=== PATIENT | male | born 1935 | race Caucasian/White ===

== ENCOUNTER → 2019-01-11 11:44 | Outpatient (CLI) | payer MEDICARE ==
--- NOTE | 2019-01-21 13:55 | EC ---
PATIENT:ALYSSA DENNIS DATE OF SERVICE: 01/11/19 SEX: M MEDICAL RECORD: [id number] DATE OF : 35 LOCATION:[facility] AGE OF PATIENT: 83 ADMISSION DATE: 01/11/19 REFERRING PHYSICIAN: INTERPRETING PHYSICIAN: ALYCE HENDRIX MD ECHOCARDIOGRAM REPORT ECHO CHARGES 4 ECHO COMPLETE Date: 01/11/19 CLINICAL DIAGNOSIS: HTN/AI ECHOCARDIOGRAPHIC MEASUREMENTS (adult normal given) AC root (d.<3.7cm) 3.7 cm LV Septum d (<1.2 cm> 1.5 cm Valve Excursion 2.2 cm LV Septum (systole) 1.8 cm Left Atria (s.<4.0cm> 4.7 cm LVPW d(<1.2cm) 0.9 cm RV (d.<2.3cm) 2.4 cm LVPW (sytole) 1.5 cm LV diastole(<5.6CM) 5.5 cm MV E-F(>70mm/sec) cm LV systole 3.2 cm LVOT Diameter 1.8 cm MV exc.(>10mm) cm Est.ejection fraction (50-75%) % DOPPLER: LVIT cm/sec A 66.0 cm/sec E 84.0 cm/sec LA cm/sec RVSP 43.0 mmHg LVOT 115 cm/sec AOP1/2T m/s Asc. Ao 147 cm/sec RVOT 54.0 cm/sec RA cm/sec PA 76.0 cm/sec AV Gradient Peak 8.7 mmHg AV Mean 4.2 mmHg AV Area 2.1 cm MV Gradient Peak 5.2 mmHg MV Mean 1.0 mmHg MV Area cm COMMENTS: OP - HC Scissors Sharpener: Josie POLANCOOE Clinical Nursing Assistant: 3 Dr. Gorman TAPE# PACS Pericardial Effusion N DATE OF SERVICE: 01/11/2019 Adequate 2D, Color Flow, Spectral Doppler, and M-Mode LVH is present. LV internal dimensions are normal. Wall motion is normal. Ejection fraction of greater than 55%. Aortic valve has sclerosis without stenosis by Doppler interrogation. Lgbb-ip-defyopuc AI present by color flow imaging. Left atrium dilated at 4.7 cm. Mitral valve shows no prolapse. Mild MR. Right-sided chambers are grossly normal. Mild TR. ECHOCARDIOGRAM REPORT [id number] ALYSSA DENNIS TRANSINT:[id number] Voice Confirmation ID: [id number] DOCUMENT ID: [id number] ALYCE HENDRIX MD at 1355 CC: [id number] DICTATION DATE: 01/12/19 1140 SOLVENT MIXER: 01/12/19 2302 DEP CLI 01/11/19 [facility] [address] [id number]
== END | disposition home or self-care (01) ==
LOC: D.HCCARDIO 01-09 09:00
PROVIDERS: ATTEND Internal Medicine Interventional Cardiology
DX: I35.9 Nonrheumatic aortic valve disorder, unspecified (principal); I10 Essential (primary) hypertension

== ENCOUNTER → 2020-01-22 08:30 | Outpatient (CLI) | payer MEDICARE ==
--- NOTE | 2020-01-24 11:30 | EC ---
PATIENT:ALYSSA DENNIS DATE OF SERVICE: 01/22/20 SEX: M MEDICAL RECORD: [id number] DATE OF : 35 LOCATION:[facility] AGE OF PATIENT: 84 ADMISSION DATE: 01/22/20 REFERRING PHYSICIAN: INTERPRETING PHYSICIAN: ALYCE HENDRIX MD ECHOCARDIOGRAM REPORT ECHO CHARGES 4 ECHO COMPLETE Date: 01/22/20 CLINICAL DIAGNOSIS: AORITC SCLEROSIS AND AORIC INSUFF ECHOCARDIOGRAPHIC MEASUREMENTS (adult normal given) AC root (d.<3.7cm) 4.0 cm LV Septum d (<1.2 cm> 1.6 cm Valve Excursion 1.8 cm LV Septum (systole) 1.7 cm Left Atria (s.<4.0cm> 3.6 cm LVPW d(<1.2cm) 1.5 cm RV (d.<2.3cm) 6.3 cm LVPW (sytole) 1.7 cm LV diastole(<5.6CM) 4.7 cm MV E-F(>70mm/sec) cm LV systole 25.5 cm LVOT Diameter 2.1 cm MV exc.(>10mm) 1.0 cm Est.ejection fraction (50-75%) % DOPPLER: LVIT cm/sec A 108.0cm/sec E 83.0 cm/sec LA cm/sec RVSP 35 mmHg LVOT 135 cm/sec AOP1/2T 601 m/s Asc. Ao 177 cm/sec RVOT 62 cm/sec RA cm/sec PA 99 cm/sec AV Gradient Peak 12.56mmHg AV Mean 6.44 mmHg AV Area 2.6 cm MV Gradient Peak 5.34 mmHg MV Mean 2.33 mmHg MV Area cm COMMENTS: Organizational Development Consultant: 2 ERIKA ARTHUR Baking Factory Worker: 3 Dr. Gorman TAPE# PACS Pericardial Effusion N DATE OF SERVICE: Adequate 2D, color flow imaging, spectral Doppler, and M-Mode. LVH is present. LV internal dimensions are normal. Wall motion is normal. EF is greater than or equal to 55%. Aortic valve is sclerotic. No evidence of stenosis by Doppler interrogation. Mild AI by color flow imaging. Left atrium was normal. Mitral valve shows no prolapse. Mild MR. Right-sided chambers are grossly normal. Moderate. ECHOCARDIOGRAM REPORT [id number] ALYSSA DENNIS TRANSINT:[id number] Voice Confirmation ID: [id number] DOCUMENT ID: [id number] ALYCE HENDRIX MD at 1130 CC: [id number] DICTATION DATE: 01/23/20843 CARE PROVIDER: 01/23/201909 [facility] CLI 01/22/[address] [facility] [address] [id number]
== END | disposition home or self-care (01) ==
LOC: D.HCCECHO 08:30
PROVIDERS: ATTEND Internal Medicine Interventional Cardiology
DX: I35.0 Nonrheumatic aortic (valve) stenosis (principal)

== ENCOUNTER → 2020-12-09 08:01 | Outpatient (CLI) | payer MEDICARE | END | disposition home or self-care (01) | LOC: D.HCCECHO 08:01 | PROVIDERS: ATTEND Internal Medicine Interventional Cardiology | DX: I10 Essential (primary) hypertension (principal); I35.1 Nonrheumatic aortic (valve) insufficiency ==